=== PATIENT | female | born 1985 | race Caucasian/White ===

== ENCOUNTER 2017-01-27 10:14 | Day surgery (SDC) | payer OTHER ==
[~2017-01-27] VITALS: Ht 160 cm; Wt 69.9 kg
[2017-01-27] MEDS ORDERED: IV RINGERS,LACTATED 1000ML 1,000 ML IV SCH ×2 (10:20→11:20)
[2017-01-27] MEDS ORDERED: LIDOCAINE 1% 1 ML SYRINGE. ID PRN ×2 (10:30→11:30)
[2017-01-27] MEDS ORDERED: fentaNYL PF VIAL 100 MCG/2 ML VIAL IV PRN ×3 (10:30→11:30)
[2017-01-27] MEDS ORDERED: MIDAZOLAM HCL/PF 2 MG/2 ML VIAL. IV PRN (10:30)
[2017-01-27 10:40] LABS: NEG OBC UR NEG; POS OBC UR POS
[2017-01-27] MEDS ORDERED: ONDANSETRON PF 4 MG/2 ML VIAL. IV PRN (11:30)
[2017-01-27] MEDS ORDERED: PROCHLORPERAZINE 10 MG/2 ML VIAL. IV PRN (11:30)
[2017-01-27] MEDS ORDERED: LIDOCAINE 1%/EPI 1:100,000 20 ML VIAL. ONE (12:00)
[2017-01-27] MEDS ORDERED: FERRIC SUBSULFATE 8 ML SOL.W.APPL TP ONE ×2 (12:00)
[2017-01-27] MEDS ORDERED: ONDANSETRON PF 4 MG/2 ML VIAL. ONE (12:13)
[2017-01-27] MEDS ORDERED: LIDOCAINE 2% PF Vial for OR 5 ML VIAL. ONE (12:13)
[2017-01-27] MEDS ORDERED: SEVOFLURANE 16 TO 30 MINUTES. IH ONE (12:13)
[2017-01-27] MEDS ORDERED: DEXAMETHASONE SOD PHOS 20 MG/5 ML VIAL. ONE (12:13)
[2017-01-27] MEDS ORDERED: PROPOFOL 20 ML IV ONE ×2 (12:13→12:56)
[2017-01-27] MEDS ORDERED: fentaNYL PF VIAL 100 MCG/2 ML VIAL ONE (12:14)
--- NOTE | 2017-01-27 12:56 | PDOC ---
BRIEF OPERATIVE NOTE Pre-Op Diagnosis Cervical dysplasia Post-Op Diagnosis Same Procedure Performed Cervical cone biopsy Surgeon Dr. Franco Anesthesia Type: General Blood Loss 25 ml Specimens Obtained cervical cone biopsy Findings cervical dysplasia; IUD strings in place Complications none Additional Remarks pt. ERNA Plascencia Jr, MD Jan 27, 2017 12:56
--- NOTE | 2017-01-27 12:57 | DISCH ---
DISCHARGE INSTRUCTIONS Condition on Discharge Condition on Discharge: Stable Activity After Discharge Activity Instructions for Disc: Activity as tolerated Lifting Instructions after Dis: No heavy lifting Driving Instructions after Dis: Do not drive today Diet after Discharge Diet after Discharge: Regular Contacting the [facility] after DC Call your doctor for: Concerns you may have Follow-Up Follow up with: Dr. Franco in 2 weeks. ERNA FRANCO Jr, MD Jan 27, 2017 12:57
[2017-01-27] MEDS: fentaNYL PF VIAL 100 MCG/2 ML VIAL IV PRN ×2 (13:30→13:45)
[2017-01-27] MEDS ORDERED: OXYC-323 PO (13:54)
[2017-01-27] MEDS ORDERED: oxyCODONE/APAP 5/325 1 TAB TABLET PO ONE (14:00)
[2017-01-27 14:20] VITALS: BP 121/71
--- NOTE | 2017-01-27 15:05 | OP ---
DATE OF SURGERY: 01/27/2017 PREOPERATIVE DIAGNOSIS: Cervical dysplasia. POSTOPERATIVE DIAGNOSIS: Cervical dysplasia. PROCEDURE: Cervical cone biopsy. SURGEON: Erna Franco MD ANESTHESIA: GETA. ESTIMATED BLOOD LOSS: 25 mL. COMPLICATIONS: None. FINDINGS: Cervical dysplasia, IUD strings in place. SUMMARY: A 31-year-old female who had [place] 1 colposcopic biopsy. She was counseled on need for cervical cone biopsy. She was counseled on risks, benefits, and expectations and voiced clear understanding to proceed. DESCRIPTION OF PROCEDURE: The patient was taken to Surgery Suite and placed in dorsal lithotomy position. She was prepped with Betadine solution and draped in sterile fashion. After adequate anesthesia, weighted speculum and curved [place] were placed vaginally. Anterior lip of the cervix was grasped with a single tooth tenaculum. Cervix was injected with 1% lidocaine with epinephrine in a circumferential manner. A 2-0 Vicryl suture was placed at the 3 o'clock and 9 o'clock position to stabilize the cervix. Cervical cone biopsy was performed using cold knife, cone angle scapula, removing anterior and posterior lip of cervix in a cone-like fashion. The remaining portion of the endocervical canal was cauterized with Bovie cautery. Monsel solution was also applied for good hemostasis. The IUD strings were still visualized and placed in a more visible spot for good healing. The weighted speculum and curved [place] were removed. The patient tolerated the procedure well. She was taken to Recovery Room in stable condition. Sponge and needle counts were correct x3. ERNA FRANCO MD DR: ENRIQUE/carlos JOB#: [id number] / [id number]
--- NOTE | 2017-01-31 12:37 | PATHOLOGY ---
PATHOLOGY REPORT * * * * * * * * FINAL DIAGNOSIS: Cervix "cervical cone": - Moderate chronic cervicitis with squamous metaplasia and with focal area consistent with cervical intraepithelial neoplasia, Grade 1, mild dysplasia. - All surgical resection margins are free without any evidence of atypia or malignancy. COMMENT: The previous Pap, [id number]) was negative, however, high risk HPV was positive, other than 16 and 18. (SHA:mml; d/t: 01/31/2017) REPORT ELECTRONICALLY SIGNED BY: Mayank Hurst M.D. DATE/TIME: 01/31/2017 12:36 * * * * * * * * GROSS PATHOLOGY: Received in formalin labeled "Melony Bell cervical cone, suture at 12:00," is a single, intact LEEP specimen measuring 2.0 x 1.7 x 1.1 cm in greatest dimensions. The specimen is oriented with a suture marking the 12:00 aspect. The 1.1 cm cervical os is surrounded by pale morrison and granular ectocervical mucosa. The endocervical margin is inked blue and the ectocervical margin is inked black. The specimen is divided into four quadrants in a clockwise fashion, sectioned, and entirely submitted as follows: A1 12-3:00 margin A2 3-6:00 margin A3 6-9:00 margin A4 9-12:00 margin. (KAH; 01/28/2017) INITIAL CPT CODE(S): A; 76933 Professional services [place] [address] Technical services performed by [facility] at [address] [place] [address], [facility] [address], [place] [address]. SPECIMEN(S) RECEIVED: A.Cervical cone CLINICAL HISTORY: Cervical dysplasia PATIENT: MELONY BELL /AGE: 1207/18/1985 (Age: 31) PATIENT #: [id number] ALT CASE #: SPECIMEN COLLECTION DATE: 01/27/2017 SPECIMEN RECEIVED DATE: 01/27/2017 [facility] - [address] [place] [address] - PHONE: [phone] * * * END OF REPORT * * *
== END 2017-01-27 14:31 | disposition home or self-care (01) ==
LOC: SURG 10:14
PROVIDERS: ATTEND Obstetrics & Gynecology
DX: N87.0 Mild cervical dysplasia (principal); Z86.69 Personal history of other diseases of the nervous system and sense organs
CPT/HCPCS: 57520; 81025; J0690; J1100; J2405; J2704; J3010; J3490; J7120

== ENCOUNTER 2018-12-06 14:43 | Emergency (ER) | payer OTHER ==
[~2018-12-06] VITALS: Ht 160 cm; Wt 65.8 kg
[~2018-12-06 14:43] MED LIST: OXYC1TAB15 PO
[2018-12-06] MEDS ORDERED: methylPREDNISolone SOD SUCC PF 125 MG/2 ML VIAL. ONE (14:45)
[2018-12-06] MEDS ORDERED: diphenhydrAMINE 50 MG/ML VIAL ONE (14:45)
[2018-12-06] MEDS ORDERED: FAMOTIDINE 20 MG/2 ML VIAL ONE ×2 (14:45→14:51)
[2018-12-06] MEDS ORDERED: EPINEPHrine 1 MG/ML VIAL ONE (14:47)
--- NOTE | 2018-12-06 15:56 | PHYS DOC ---
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 She denied any SOA, chest tightness, N/V, or throat pain/swelling/difficulty swallowing. She reports she is uncertain as to what she came into contact with but does have severe reax to epoxy resin- states she has Epi pen in her car but didn't have it with her. 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 Review of Systems Review of Systems Constitutional: Denies fever or fatigue Eyes: Denies change in visual acuity, redness, or eye pain [] HENT: Denies throat pain/swelling or difficulty swallowing. Reports feels face is swollen with itchiness Respiratory: Denies cough or shortness of breath [] Cardiovascular: Denies chest tightness GI: Denies abdominal pain, nausea, vomiting : Denies urinary sxs Musculoskeletal: Denies back/neck pain or joint pain [] Integument: Reports swelling, redness, hives, and itchiness Neurologic: Denies headache, focal weakness or sensory changes. Denies dizziness All other systems were reviewed and found to be within normal limits, except as documented in this note. Current Medications Current Medications Current Medications Medications (Trade) Dose Ordered Sig/Demarcus Start Time Stop Time Status Last Admin Dose Admin Diphenhydramine HCl (Benadryl) 50 mg 1X ONCE 12/06/18 16:00 12/06/18 16:01 DC 12/06/18 14:53 50 MG Epinephrine HCl (Adrenalin) 1 mg STK-MED ONCE 12/06/18 14:47 12/06/18 14:48 DC Famotidine (Pepcid Vial) 40 mg 1X ONCE 12/06/18 16:00 12/06/18 16:01 DC 12/06/18 16:00 40 MG Methylprednisolone Sodium Succinate (SOLU-Medrol 125MG VIAL) 125 mg 1X ONCE 12/06/18 16:00 12/06/18 16:01 DC 12/06/18 15:59 125 MG Sodium Chloride 1,000 ml @ 1,000 mls/hr 1X ONCE 12/06/18 16:00 12/06/18 16:59 DC 12/06/18 16:02 1,000 MLS/HR Allergies Allergies Allergies Coded Allergies Type Severity Reaction Last Updated Verified epoxy resin Allergy Severe Anaphylaxis 01/27/17 Yes hydrocodone Allergy Intermediate Itching 01/27/17 Yes Sulfa (Sulfonamide Antibiotics) Adverse Reaction Intermediate 01/27/17 Yes Physical Exam Physical Exam Constitutional: Well developed, well nourished, moderate distress- anxious/restless itching extremities, non-toxic appearance. [] HENT: Normocephalic, atraumatic, bilateral ears normal, oropharynx moist- no pharyngeal swelling/erythema- uvula midline, no oral exudates, nose normal. No pooling of secretions Eyes: PERRLA, no nystagmus, conjunctiva normal, no discharge. No orbital swelling/redness Neck: Normal range of motion, no tenderness/nuchal rigidity, supple, no stridor. Trachea mid line Cardiovascular: Tachycardic heart rate regular rhythm, no murmur [] Lungs & Thorax: Bilateral breath sounds clear to auscultation- resp. rapid w/pt anxious during initial exam. Diminished in bases. No wheezing. Pt is speaking in full sentences Abdomen: Bowel sounds normal, soft, no tenderness Skin: Warm, dry. Diffuse redness neck/trunk/extremities with hives on bilat. feet Back: Full ROM Extremities: No cyanosis, no clubbing, ROM intact, no edema. [] Neurologic: Alert and oriented X 3, normal motor function, normal sensory function, no focal deficits noted. [] Psychologic: Affect normal, judgement normal, mood anxious/restless Current Patient Data Vital Signs Vital Signs Date Time Temp Pulse Resp B/P (MAP) Pulse Ox O2 Delivery O2 Flow Rate FiO2 12/06/18 16:00 81 111/56 (74) 98 Room Air 12/06/18 15:45 16 12/06/18 14:47 98.4 98.4 EKG EKG [] Radiology/Procedures Radiology/Procedures [] Course & Med Decision Making Course & Med Decision Making 1550: On reevaluation patient's heart rate is 82 she is having no labored breathing. Lungs clear bilat. with increased air movement throughout- resp. are equal/nonlabored. On re-exam no pharyngeal swelling- uvula midline and she is speaking in full sentences w/no difficulty swallowing. She reports her symptoms have improved. Redness patient had on her neck has mostly subsided as well as hives she had on her feet. She is in no distress and not anxious/restless any longer. Other staff from wound care at beside with her. Pt reports she is comfortable with home d/c as her sxs have significantly improved and she is aware if sxs reoccur or worsen she would return and also has her Epi pen if needed. Education provided on keeping her Epi pen with her at all times. D ischarge instructions were discussed. Dragon Disclaimer Dragon Disclaimer This electronic medical record was generated, in whole or in part, using a voice recognition dictation system. Departure Departure Impression: Primary Impression: Allergic reaction Disposition: 01 HOME, SELF-CARE Condition: STABLE Referrals: UNKNOWN PCP NAME (PCP) Additional Instructions: You were evaluated in the ER following an allergic reaction. It is unknown as to what caused the allergy. You should carry your EpiPen at all times in case this was to happen again. You should follow-up with your primary care physician for reevaluation and further care. You can use dlaz-ahe-agrryem antihistamine such as Benadryl as directed on container during allergic reactions. If you feel short of air, sore/swollen throat, chest tightness, or having any concerns seek medical attention immediately or call 911. ANGELITA DUMONT APRN Dec 06, 2018 15:56
[2018-12-06 16:00] VITALS: BP 111/56
[2018-12-06] MEDS ORDERED: diphenhydrAMINE 50 MG/ML VIAL IVP ONE (16:00)
[2018-12-06] MEDS ORDERED: FAMOTIDINE 20 MG/2 ML VIAL IVP ONE (16:00)
[2018-12-06] MEDS ORDERED: methylPREDNISolone SOD SUCC PF 125 MG/2 ML VIAL. IV ONE (16:00)
[2018-12-06] MEDS ORDERED: IV NORMAL SALINE 1000ML BAG 1,000 ML IV ONE (16:00)
== END 2018-12-06 17:22 | disposition home or self-care (01) ==
LOC: ER 14:43
DX: T78.40XA Allergy, unspecified, initial encounter (principal); Z88.5 Allergy status to narcotic agent; Z88.2 Allergy status to sulfonamides; Z91.09 Other allergy status, other than to drugs and biological substances; X58.XXXA Exposure to other specified factors, initial encounter
CPT/HCPCS: 96374; 96375; 99284; J1200; J2930; J3490; J7030

== ENCOUNTER 2019-08-09 12:48 | Emergency (ER) | payer OTHER ==
[~2019-08-09] VITALS: Ht 162.6 cm; Wt 60.3 kg
[2019-08-09] MEDS ORDERED: IV NORMAL SALINE 1000ML BAG 1,000 ML IV SCH (12:57)
[2019-08-09 13:13] LABS: BASO % 0 % (0-3); EOS # 0.1 x10^3/uL (0.0-0.7); EOS % 1 % (0-3); HEMATOCRIT 41.9 % (36.0-47.0); HEMOGLOBIN 14.3 g/dL (12.0-15.5); LYMPH # 2.8 x10^3/uL (1.0-4.8); LYMPH % 28 % (24-48); MEAN CORPUSCULAR HEMOGLOBIN 31 pg (25-35); MEAN CORPUSCULAR HGB CONC 34 g/dL (31-37); MEAN CORPUSCULAR VOLUME 91 fL (79-100); MONO # 0.6 x10^3/uL (0.0-1.1); MONO % 6 % (0-9); NEUT # 6.5 x10^3/uL (1.8-7.7); NEUT % 65 % (31-73); PLATELET COUNT 369 x10^3/uL (140-400); RED BLOOD COUNT 4.59 x10^6/uL (3.50-5.40)
[2019-08-09 13:24] LABS: CALCIUM 9.1 mg/dL (8.5-10.1); CREATININE 0.7 mg/dL (0.6-1.0); GFR 95.8; POTASSIUM 3.4 mmol/L (3.5-5.1)
[2019-08-09 13:30] LABS: ALBUMIN 4.3 g/dL (3.4-5.0); ALBUMIN/GLOBULIN RATIO 1.2 (1.0-1.7); TOTAL BILIRUBIN 0.4 mg/dL (0.2-1.0)
[2019-08-09] MEDS ORDERED: FAMOTIDINE 20 MG/2 ML VIAL IVP ONE (13:30)
[2019-08-09] MEDS ORDERED: diphenhydrAMINE 50 MG/ML VIAL IV ONE (13:30)
[2019-08-09] MEDS ORDERED: methylPREDNISolone SOD SUCC PF 125 MG/2 ML VIAL. IV ONE (13:30)
--- NOTE | 2019-08-09 13:35 | PHYS DOC ---
Past Medical History Past Medical History: Other Additional Past Medical Histor: ADD,DARLENE Past Surgical History: Other Additional Past Surgical Histo: LEEP Alcohol Use: None Drug Use: None Adult General Chief Complaint Chief Complaint: ALLERGIC REACTION HPI HPI Patient is a 34 year old female patient with history of ADD and several episodes of anaphylaxis reaction who presents with complaining of a rash and throat swelling. Patient works as a nurse at wound clinic and complaining of sudden onset of rash in her face and upper chest with itching and throat swelling without shortness of breath like her previous episodes of anaphylaxis reaction. She denies shortness of breath, nausea and vomiting, . She states maybe she is allergic to gluebut it is not confirmed. Review of Systems Review of Systems Constitutional: Denies fever or chills [] Eyes: Denies change in visual acuity, redness, or eye pain [] HENT: Denies nasal congestion or sore throat [] Respiratory: Denies cough or shortness of breath [] Cardiovascular: No additional information not addressed in HPI [] GI: Denies abdominal pain, nausea, vomiting, bloody stools or diarrhea [] : Denies dysuria or hematuria [] Musculoskeletal: Denies back pain or joint pain [] Integument: Reports rash and itching Neurologic: Denies headache, focal weakness or sensory changes [] Endocrine: Denies polyuria or polydipsia [] All other systems were reviewed and found to be within normal limits, except as documented in this note. Current Medications Current Medications Current Medications Medications (Trade) Dose Ordered Sig/Demarcus Start Time Stop Time Status Last Admin Dose Admin Diphenhydramine HCl (Benadryl) 50 mg 1X ONCE 08/09/19 13:30 08/09/19 13:31 DC 08/09/19 13:04 50 MG Famotidine (Pepcid Vial) 20 mg 1X ONCE 08/09/19 13:30 08/09/19 13:31 DC 08/09/19 13:07 20 MG Methylprednisolone Sodium Succinate (SOLU-Medrol 125MG VIAL) 125 mg 1X ONCE 08/09/19 13:30 08/09/19 13:31 DC 08/09/19 13:02 125 MG Sodium Chloride 1,000 ml @ 1,000 mls/hr Q1H 08/09/19 12:57 08/09/19 13:56 DC 08/09/19 13:03 1,000 MLS/HR Allergies Allergies Allergies Coded Allergies Type Severity Reaction Last Updated Verified epoxy resin Allergy Severe Anaphylaxis 01/27/17 Yes hydrocodone Allergy Intermediate Itching 01/27/17 Yes Sulfa (Sulfonamide Antibiotics) Adverse Reaction Intermediate 01/27/17 Yes Physical Exam Physical Exam Constitutional: Well developed, well nourished, moderate distress, non-toxic appearance. [] HENT: Normocephalic, atraumatic, bilateral external ears normal, oropharynx moist, no oral exudates, nose normal. [] Eyes: PERRLA, EOMI, conjunctiva normal, no discharge. [] Neck: Normal range of motion, no tenderness, supple, no stridor. [] Cardiovascular: Tachycardia, no murmur [] Lungs & Thorax: Bilateral breath sounds clear to auscultation [] Abdomen: Bowel sounds normal, soft, no tenderness, no masses, no pulsatile masses. [] Skin: Warm, dry, erythematous rash around nose and mouth and forehead, rash of upper extremity and neck Extremities: No tenderness, no cyanosis, no clubbing, ROM intact, no edema. [] Neurologic: Alert and oriented X 3, normal motor function, normal sensory function, no focal deficits noted. [] Psychologic: Affect anxious, judgement normal, mood normal. [] Current Patient Data Vital Signs Vital Signs Date Time Temp Pulse Resp B/P (MAP) Pulse Ox O2 Delivery O2 Flow Rate FiO2 08/09/19 12:48 98.3 114 26 145/83 (103) 99 Room Air 98.3 Lab Values Laboratory Tests Test 08/09/19 12:57 White Blood Count 10.0 x10^3/uL (4.0-11.0) Red Blood Count 4.59 x10^6/uL (3.50-5.40) Hemoglobin 14.3 g/dL (12.0-15.5) Hematocrit 41.9 % (36.0-47.0) Mean Corpuscular Volume 91 fL (79-100) Mean Corpuscular Hemoglobin 31 pg (25-35) Mean Corpuscular Hemoglobin Concent 34 g/dL (31-37) Red Cell Distribution Width 13.0 % (11.5-14.5) Platelet Count 369 x10^3/uL (140-400) Neutrophils (%) (Auto) 65 % (31-73) Lymphocytes (%) (Auto) 28 % (24-48) Monocytes (%) (Auto) 6 % (0-9) Eosinophils (%) (Auto) 1 % (0-3) Basophils (%) (Auto) 0 % (0-3) Neutrophils # (Auto) 6.5 x10^3/uL (1.8-7.7) Lymphocytes # (Auto) 2.8 x10^3/uL (1.0-4.8) Monocytes # (Auto) 0.6 x10^3/uL (0.0-1.1) Eosinophils # (Auto) 0.1 x10^3/uL (0.0-0.7) Basophils # (Auto) 0.0 x10^3/uL (0.0-0.2) Sodium Level 140 mmol/L (136-145) Potassium Level 3.4 mmol/L (3.5-5.1) L Chloride Level 102 mmol/L (98-107) Carbon Dioxide Level 27 mmol/L (21-32) Anion Gap 11 (6-14) Blood Urea Nitrogen 13 mg/dL (7-20) Creatinine 0.7 mg/dL (0.6-1.0) Estimated GFR (Cockcroft-Gault) 95.8 BUN/Creatinine Ratio 19 (6-20) Glucose Level 125 mg/dL (70-99) H Calcium Level 9.1 mg/dL (8.5-10.1) Total Bilirubin 0.4 mg/dL (0.2-1.0) Aspartate Amino Transferase (AST) 14 U/L (15-37) L Alanine Aminotransferase (ALT) 15 U/L (14-59) Alkaline Phosphatase 75 U/L (46-116) Total Protein 8.0 g/dL (6.4-8.2) Albumin 4.3 g/dL (3.4-5.0) Albumin/Globulin Ratio 1.2 (1.0-1.7) Laboratory Tests 08/09/19 12:57 Laboratory Tests 08/09/19 12:57 EKG EKG [] Radiology/Procedures Radiology/Procedures [] Course & Med Decision Making Course & Med Decision Making Pertinent Labs reviewed. (See chart for details) I've spoken with the patient and/or caregivers. I've explained the patient's condition, diagnosis and treatment plan based on information available to me at this time. I've answered the patient's and/or caregivers questions and addressed any concerns. The patient and/or caregivers have a good understanding the patient's diagnosis, condition and treatment plan as can be expected at this point. Vital signs have been stabilized. The patient's condition is stable for discharge from the emergency department. The patient will pursue further outpatient evaluation with her primary care provider or other designated consulting physician as outlined in the discharge instructions. Patient and/or caregivers are agreeable to this plan of care and follow-up instructions have been explained in detail. The patient and/or caregivers have received these instructions in written format and expressed understanding of these discharge instructions. The patient and her caregivers are aware that if any significant change in condition or worsening of symptoms should prompt him to immediately return to this of the closest emergency department. If an emergent department is not readily available I would encourage him to call 911. Dragon Disclaimer Dragon Disclaimer This electronic medical record was generated, in whole or in part, using a voice recognition dictation system. Departure Departure Impression: Primary Impression: Allergic reaction Additional Impression: Hypokalemia Disposition: HOME, SELF-CARE (at 1410) Condition: IMPROVED Referrals: UNKNOWN PCP NAME (PCP) Patient Instructions: Anaphylactic Reaction, Hypokalemia Additional Instructions: Drink plenty of liquids Follow-up with your primary care physician in 3-5 days Return to ER if not getting better Thank you for visiting [facility]. We appreciate you trusting us with your care. If any additional problems come up don't hesitate to return to visit us. Please follow up with your primary care provider so they can plan additional care if needed and know about the problem that you had. If symptoms worsen come back to the Emergency Department. Any concerning symptoms that start such as chest pain, shortness of air, weakness or numbness on one side of the body, running high fevers or any other concerning symptoms return to the ER. Problem Qualifiers Primary Impression: Allergic reaction Encounter type: initial encounter Qualified Codes: T78.40XA - Allergy, unspecified, initial encounter JOHN LUCAS MD Aug 09, 2019 13:35
[2019-08-09 14:00] VITALS: BP 108/58
== END 2019-08-09 14:25 | disposition home or self-care (01) ==
LOC: ER 12:48
DX: T78.40XA Allergy, unspecified, initial encounter (principal); E87.6 Hypokalemia; Z88.2 Allergy status to sulfonamides; Z88.5 Allergy status to narcotic agent; Z88.8 Allergy status to other drugs, medicaments and biological substances
CPT/HCPCS: 36415; 80053; 85025; 96374; 96375; 99284; J1200; J2930; J3490; J7030

== ENCOUNTER → 2020-06-04 | Outpatient (CLI) | payer OTHER | LOC: LAB 08:43 | PROVIDERS: ATTEND Internal Medicine Pulmonary Disease | DX: Z01.812 Encounter for preprocedural laboratory examination (principal); Z20.828 Contact with and (suspected) exposure to other viral communicable diseases | CPT/HCPCS: U0003 ==

== ENCOUNTER → 2020-07-25 | Outpatient (CLI) | payer OTHER | LOC: LAB 14:02 | PROVIDERS: ATTEND Preventive Medicine Undersea and Hyperbaric Medicine | DX: N93.9 Abnormal uterine and vaginal bleeding, unspecified (principal) | CPT/HCPCS: 36415; 84702 ==

== ENCOUNTER → 2020-09-02 | Outpatient (CLI) | payer OTHER | LOC: LAB 08:44 | PROVIDERS: ATTEND Internal Medicine Pulmonary Disease | DX: R51.9 Headache, unspecified (principal); R09.81 Nasal congestion; R11.2 Nausea with vomiting, unspecified; R53.81 Other malaise; Z20.828 Contact with and (suspected) exposure to other viral communicable diseases | CPT/HCPCS: U0003 ==